=== PATIENT | male | born 1945 | race Caucasian/White ===

== ENCOUNTER → 2017-02-22 | Outpatient (CLI) | payer MEDICARE, OTHER ==
[2014-03-18 16:45] VITALS: BP 145/73
[~2017-02-22] MED LIST: ASPI-630 PO; CALC-31 PO; DIAZ5TAB PO; FERR325T58 PO; HYDR-2678 PO; OMEG1CAP65 PO; PRAV20TA2 PO; RANI150T6 PO
--- NOTE | 2017-02-22 11:13 | KCIC ---
MRI of the brain without contrast 02/22/2017 . Clinical History: Episode of confusion with aphasia in August of this year Technique: Unenhanced T1-weighted sagittal and axial, T2-weighted axial and coronal and FLAIR, gradient echo and diffusion-weighted axial images of the brain were obtained. Findings: Comparison study is dated 08/16/2012. There is generalized parenchymal atrophy. Patchy and a few small scattered areas of increased signal intensity are seen within the periventricular and subcortical white matter of both cerebral hemispheres on the FLAIR and T2-weighted images consistent with areas of mild small vessel ischemic disease. These have not significantly changed. No acute parenchymal abnormality is seen. No extra-axial fluid collection is seen. There is no MRI evidence of acute ischemia/infarction. Mild mucosal thickening in seen scattered throughout the paranasal sinuses. Normal flow voids are seen within the major vascular structures surrounding the brain parenchyma. Impression: No acute parenchymal abnormality is seen. Electronically signed by: Rashad Lombardo MD (02/22/2017 11:09 AM) [id number]
== END | disposition home or self-care (01) ==
LOC: KCIC MRI 08:20
DX: R47.01 Aphasia (principal); R41.0 Disorientation, unspecified; R90.82 White matter disease, unspecified
CPT/HCPCS: 70551

== ENCOUNTER → 2018-04-09 | Outpatient (CLI) | payer MEDICARE, OTHER ==
[2014-03-18 16:45] VITALS: BP 145/73
[~2018-04-09] MED LIST changes: +RANI150T21 PO; -RANI150T6 PO
--- NOTE | 2018-04-09 08:51 | RAD ---
Ultrasound abdomen complete 04/09/2018 CLINICAL INDICATION: Kidney stones and hyperlipidemia. COMPARISON: CT abdomen and pelvis 03/17/2014 FINDINGS: Visualized proximal pancreatic body unremarkable. Visualized upper abdominal aorta and IVC unremarkable. Liver is homogeneous in echotexture. Gallbladder is normal in size and configuration without wall thickening, pericholecystic fluid or cholelithiasis. No intra or extrahepatic biliary ductal dilatation with the common bile measuring 2 mm. Right kidney measures 10.0 cm in length. There is a simple appearing cyst in the interpolar right kidney measuring up to 1.8 cm. Spleen measures 8.3 cm in length. Left kidney measures 11.0 cm in length without hydronephrosis or abnormal perinephric fluid collection. IMPRESSION: 1. Both kidneys present without hydronephrosis or definite nephrolithiasis. If there is continued clinical concern, CT is more sensitive. 2. Simple right renal cyst. Electronically signed by: Yunier Butler MD (04/09/2018 8:48 AM) [id number]
== END | disposition home or self-care (01) ==
LOC: US 06:17
DX: Z13.6 Encounter for screening for cardiovascular disorders (principal); N28.1 Cyst of kidney, acquired; Z87.442 Personal history of urinary calculi
CPT/HCPCS: 76700